=== PATIENT | female | born 1975 | race Hispanic/Latino ===

== ENCOUNTER 2022-03-02 08:02 | Outpatient (CLI) | payer OTHER | END 2022-03-02 08:03 | disposition home or self-care (01) | PROVIDERS: ATTEND Family Medicine | DX: G89.4 Chronic pain syndrome (principal); R29.898 Other symptoms and signs involving the musculoskeletal system; R29.6 Repeated falls; Z68.43 Body mass index [BMI] 50.0-59.9, adult ==

== ENCOUNTER 2022-03-15 09:29 | Outpatient (CLI) | payer OTHER | END 2022-03-15 09:30 | disposition home or self-care (01) | LOC: LABBT 09:29 | DX: Z01.818 Encounter for other preprocedural examination (principal); Z20.822 Contact with and (suspected) exposure to COVID-19; E66.01 Morbid (severe) obesity due to excess calories | CPT/HCPCS: 36415; 80053; 80061; 82306; 82607; 82728; 82746; 83036; 83540; 83970; 84425; 84443; 84480; 85025; 87811 ==

== ENCOUNTER 2022-03-17 18:25 | Observation (INO) | payer OTHER ==
[2022-03-17 19:53] LABS: #Eosinphils 0.3 thou/uL (0.0-0.7); #Monocytes 0.7 thou/uL (0.11-0.59); #Neutrophils 6.1 thou/uL (1.40-6.50); %Basophils 0.2 % (0.0-1.0); %Eosinophils 3.5 % (0.0-10.0); %Monocytes 7.2 % (0.0-10.0); %Neutrophils 67.1 % (42.0-75.0); Mean Corpuscular HGB CONC 31.9 g/dL (32.0-36.0); Mean Corpuscular Hemoglobin 27.6 pg (27.0-31.0); Mean Corpuscular Volume 86.6 fL (78.0-98.0); Platelet Count 169 thou/uL (130-400); RBC Distribution Width 13.9 % (11.5-14.5); Red Blood Cell (RBC) Count 4.35 mill/uL (4.20-5.40); White Blood Cell (WBC) Count 9.1 thou/uL (4.8-10.8)
[2022-03-17 20:15] LABS: ALT (SGPT) 27 U/L (8-55); AST (SGOT) 23 U/L (5-34); Albumin 3.5 g/dL (3.5-5.0); Alkaline Phosphatase 58 U/L (40-110); Anion Gap 12 mmol/L (10-20); BUN (Urea Nitrogen) 16 mg/dL (7.0-18.7); Bilirubin, Total 0.6 mg/dL (0.2-1.2); Calc. Creatinine Clearance 0 mL/min (70-130); Calcium 9.5 mg/dL (7.8-10.44); Carbon Dioxide 27 mmol/L (22-29); Chloride 100 mmol/L (98-107); Estimated GFR 87; Globulin 3.9 g/dL (2.4-3.5); Glucose 93 mg/dL (70-105); Potassium 3.8 mmol/L (3.5-5.1); Protein, Total 7.4 g/dL (6.0-8.3); Sodium 135 mmol/L (136-145)
[2022-03-17] MEDS ORDERED: Nitroglycerin 2% Ointment 1 INCH/1 GM Packet ONE (20:56)
[2022-03-17] MEDS ORDERED: Nitroglycerin 0.4 MG TAB (25 Tab Bottle) SL PRN (21:42)
[2022-03-17] MEDS ORDERED: Ondansetron ODT 4 MG TAB PO PRN (21:42)
[2022-03-17] MEDS ORDERED: Labetalol HCl 100 MG/20 ML VIAL SLOW IVP PRN (21:42)
[2022-03-17] MEDS ORDERED: Acetaminophen 325 MG TAB PO PRN (21:42)
[2022-03-17] MEDS ORDERED: hydrALAZINE 20 MG/ML VIAL SLOW IVP PRN (22:24)
[2022-03-17 22:36] VITALS: BMI 55.8
[2022-03-17] MEDS ORDERED: Dextrose 50% Abboject 50 ML SYRINGE SLOW IVP PRN (22:41)
[2022-03-17] MEDS ORDERED: Dextrose 5% in Water 1,000 ML IV PRN (22:41)
[2022-03-17] MEDS ORDERED: HumaLOG 300 UNITS/3 ML VIAL SC PRN ×2 (22:41)
[2022-03-17] MEDS ORDERED: Enoxaparin Sodium 40 MG/0.4 ML SYRINGE SC SCH (23:00)
[2022-03-17 23:31] LABS: Magnesium 1.9 mg/dL (1.6-2.6); Phosphorus 3.9 mg/dL (2.3-4.7)
[2022-03-17 23:35] LABS: Troponin I Less than 0.010 ng/mL (< 0.028)
[2022-03-18 02:35] LABS: Troponin I Less than 0.010 ng/mL (< 0.028)
[2022-03-18 03:13] LABS: ALT (SGPT) 26 U/L (8-55); AST (SGOT) 22 U/L (5-34); Albumin 3.4 g/dL (3.5-5.0); Alkaline Phosphatase 60 U/L (40-110); Anion Gap 17 mmol/L (10-20); BUN (Urea Nitrogen) 18 mg/dL (7.0-18.7); Calc. Creatinine Clearance 162 mL/min (70-130); Calcium 9.8 mg/dL (7.8-10.44); Chloride 100 mmol/L (98-107); Estimated GFR 78; Globulin 3.9 g/dL (2.4-3.5); Glucose 235 mg/dL (70-105); Potassium 3.7 mmol/L (3.5-5.1); Protein, Total 7.3 g/dL (6.0-8.3); Sodium 134 mmol/L (136-145)
[2022-03-18 03:29] LABS: Bilirubin, Total 0.6 mg/dL (0.2-1.2); Carbon Dioxide 21 mmol/L (22-29)
[2022-03-18] MEDS: Lisinopril 20 MG TAB PO SCH (09:00)
[2022-03-18] MEDS ORDERED: Non-Formulary Item 1 EACH (Cyclobenzaprine Hcl [Cyclobenzaprine Hcl] 5 MG Tablet) PO SCH (09:00)
[2022-03-18] MEDS: Atorvastatin Calcium 40 MG TAB PO SCH (09:00)
[2022-03-18] MEDS: Aspirin 81 mg Enteric Coated Tablet PO SCH (09:00)
[2022-03-18 12:13] LABS: #Eosinphils 0.4 thou/uL (0.0-0.7); #Lymphocytes 1.8 thou/uL (1.20-3.40); #Monocytes 0.4 thou/uL (0.11-0.59); #Neutrophils 5.8 thou/uL (1.40-6.50); %Eosinophils 4.4 % (0.0-10.0); %Lymphocytes 21.1 % (21.0-51.0); %Monocytes 5.2 % (0.0-10.0); %Neutrophils 69.3 % (42.0-75.0); Hemoglobin 12.3 g/dL (12.0-16.0); Mean Corpuscular Hemoglobin 26.8 pg (27.0-31.0); Mean Corpuscular Volume 86.4 fL (78.0-98.0); Mean Platelet Volume 8.3 fL (7.4-10.4); Platelet Count 181 thou/uL (130-400); RBC Distribution Width 13.9 % (11.5-14.5); Red Blood Cell (RBC) Count 4.61 mill/uL (4.20-5.40); White Blood Cell (WBC) Count 8.4 thou/uL (4.8-10.8)
[2022-03-18 18:12] LABS: Amphetamine Not Detected (NotDetected); Barbiturates Screen Not Detected (NotDetected); Benzodiazepine Screen Not Detected (NotDetected); Cocaine Metabolite Screen Not Detected (NotDetected); Methadone Not Detected (NotDetected); Methamphetamine Not Detected (NotDetected); Opiate Screen Detected (NotDetected); Oxycodone Screen Not Detected (NotDetected); Phencyclidine (PCP) Not Detected (NotDetected); THC/Cannabinoid Screen Not Detected (NotDetected); Tricyclic Screen Not Detected (NotDetected)
[2022-03-18] MEDS ORDERED: Hydrochlorothiazide 25 MG TAB PO SCH (21:00)
[2022-03-19] MEDS ORDERED: Lorazepam 1 MG TAB PO SCH (08:47)
[2022-03-19] MEDS ORDERED: Lorazepam 2 MG/ML VIAL SLOW IVP PRN ×2 (08:48→08:50)
[2022-03-19] MEDS ORDERED: Lorazepam 0.5 MG TAB PO SCH (09:00)
[2022-03-19] MEDS ORDERED: Midazolam HCl 2 mg/2 ml Vial SLOW IVP SCH ×2 (09:00)
[2022-03-19] MEDS: Aspirin 81 mg Enteric Coated Tablet PO SCH (09:25)
[2022-03-19] MEDS: Atorvastatin Calcium 40 MG TAB PO SCH (09:25)
[2022-03-19] MEDS ORDERED: Lorazepam (BATCHED) 2 MG/ML SYR SLOW IVP SCH (10:45)
[2022-03-19] MEDS: Lisinopril 20 MG TAB PO SCH (11:50)
[2022-03-19 12:20] VITALS: BP 135/94; TEMP 97.3
[2022-03-19] MEDS: LAMIVUDINE PO SCH (18:13)
[2022-03-19] MEDS: DOLUTEGRAVIR SODIUM PO SCH (18:13)
== END 2022-03-19 14:30 | disposition home or self-care (01) ==
LOC: ERS 18:25 → 2SW 21:08
PROVIDERS: ADMIT Student in an Organized Health Care Education/Training Program; ATTEND Student in an Organized Health Care Education/Training Program
DX: R07.89 Other chest pain (principal); I11.9 Hypertensive heart disease without heart failure; E11.43 Type 2 diabetes mellitus with diabetic autonomic (poly)neuropathy; K31.84 Gastroparesis; E78.5 Hyperlipidemia, unspecified; G47.33 Obstructive sleep apnea (adult) (pediatric); M19.90 Unspecified osteoarthritis, unspecified site; I34.0 Nonrheumatic mitral (valve) insufficiency; E66.9 Obesity, unspecified; Z68.43 Body mass index [BMI] 50.0-59.9, adult; Z21 Asymptomatic human immunodeficiency virus [HIV] infection status; Z87.891 Personal history of nicotine dependence; Z79.82 Long term (current) use of aspirin; Z79.84 Long term (current) use of oral hypoglycemic drugs; Z79.899 Other long term (current) drug therapy
CPT/HCPCS: 36415; 36416; 71045; 78452; 80053; 80306; 83735; 84100; 84484; 85025; 93005; 93017; 93306; 94760; 96372; 96374; A9500; G0378; J0153; J1650; J2250

== ENCOUNTER 2022-10-29 16:15 | Emergency (ER) | payer OTHER | END 2022-10-29 18:02 | disposition home or self-care (01) | LOC: ERS 16:15 | DX: S06.0XAA Concussion with loss of consciousness status unknown, initial encounter (principal); S01.511A Laceration without foreign body of lip, initial encounter; M96.830 Postprocedural hemorrhage of a musculoskeletal structure following a musculoskeletal system procedure; I10 Essential (primary) hypertension; Z79.899 Other long term (current) drug therapy; E11.40 Type 2 diabetes mellitus with diabetic neuropathy, unspecified; Z87.891 Personal history of nicotine dependence; W01.0XXA Fall on same level from slipping, tripping and stumbling without subsequent striking against object, initial encounter | CPT/HCPCS: 99283 ==

== ENCOUNTER 2022-11-28 15:46 | Emergency (ER) | payer OTHER ==
[2022-11-28 16:32] LABS: #Eosinphils 0.3 thou/uL (0.0-0.7); #Lymphocytes 2.3 thou/uL (1.20-3.40); #Monocytes 0.5 thou/uL (0.11-0.59); #Neutrophils 6.8 thou/uL (1.40-6.50); %Basophils 0.1 % (0.0-1.0); %Eosinophils 3.2 % (0.0-10.0); %Lymphocytes 23.3 % (21.0-51.0); %Monocytes 4.9 % (0.0-10.0); %Neutrophils 68.5 % (42.0-75.0); Hemoglobin 12.7 g/dL (12.0-16.0); Mean Corpuscular HGB CONC 33.1 g/dL (32.0-36.0); Mean Corpuscular Hemoglobin 29.3 pg (27.0-31.0); Mean Corpuscular Volume 88.4 fl (78.0-98.0); Mean Platelet Volume 8.6 fL (7.4-10.4); Platelet Count 180 10x3/uL (130-400); RBC Distribution Width 14.4 % (11.5-14.5); Red Blood Cell (RBC) Count 4.33 mill/uL (4.20-5.40); White Blood Cell (WBC) Count 9.9 10x3/uL (4.8-10.8)
[2022-11-28 16:52] LABS: ALT (SGPT) 23 U/L (8-55); AST (SGOT) 16 U/L (5-34); Albumin 3.7 g/dL (3.5-5.0); Alkaline Phosphatase 77 U/L (40-110); Anion Gap 13 mmol/L (10-20); BUN (Urea Nitrogen) 21 mg/dL (7.0-18.7); Bilirubin, Total 0.6 mg/dL (0.2-1.2); Calc. Creatinine Clearance 0 mL/min (70-130); Carbon Dioxide 27 mmol/L (22-29); Chloride 100 mmol/L (98-107); Estimated GFR 56; Globulin 4.1 g/dL (2.4-3.5); Glucose 188 mg/dL (70-105); Lipase 55 U/L (8-78); Potassium 3.8 mmol/L (3.5-5.1); Protein, Total 7.8 g/dL (6.0-8.3); Sodium 136 mmol/L (136-145)
[2022-11-28] MEDS ORDERED: Aspirin Chewable 81 MG TAB ONE ×2 (18:02)
[2022-11-28] MEDS ORDERED: Nitroglycerin 0.4 MG TAB 1 EACH ONE (18:02)
== END 2022-11-28 19:34 | disposition home or self-care (01) ==
LOC: ERS 15:46
DX: R07.9 Chest pain, unspecified (principal); B20 Human immunodeficiency virus [HIV] disease; I10 Essential (primary) hypertension; E11.9 Type 2 diabetes mellitus without complications; Z87.891 Personal history of nicotine dependence; Z79.899 Other long term (current) drug therapy
CPT/HCPCS: 36415; 71045; 80053; 83690; 84484; 85025; 85379; 93005

== ENCOUNTER 2022-12-18 19:52 | Emergency (ER) | payer OTHER ==
[2022-12-18] MEDS ORDERED: Acetaminophen 500 MG TAB ONE ×2 (20:50→20:52)
== END 2022-12-18 20:45 | disposition home or self-care (01) ==
LOC: ERS 19:52
DX: M76.62 Achilles tendinitis, left leg (principal); B20 Human immunodeficiency virus [HIV] disease; E11.40 Type 2 diabetes mellitus with diabetic neuropathy, unspecified; I10 Essential (primary) hypertension; Z79.899 Other long term (current) drug therapy; Z87.891 Personal history of nicotine dependence

== ENCOUNTER 2023-01-05 15:20 | Emergency (ER) | payer OTHER ==
[2023-01-05 16:51] LABS: #Eosinphils 0.3 thou/uL (0.0-0.7); #Lymphocytes 1.9 thou/uL (1.20-3.40); #Monocytes 0.5 thou/uL (0.11-0.59); #Neutrophils 6.1 thou/uL (1.40-6.50); %Basophils 0.1 % (0.0-1.0); %Eosinophils 3.3 % (0.0-10.0); %Lymphocytes 21.8 % (21.0-51.0); %Monocytes 5.1 % (0.0-10.0); %Neutrophils 69.7 % (42.0-75.0); Hemoglobin 11.8 g/dL (12.0-16.0); Mean Corpuscular Hemoglobin 28.7 pg (27.0-31.0); Mean Corpuscular Volume 87.1 fl (78.0-98.0); Mean Platelet Volume 8.3 fL (7.4-10.4); Platelet Count 169 10x3/uL (130-400); RBC Distribution Width 14.9 % (11.5-14.5); White Blood Cell (WBC) Count 8.7 10x3/uL (4.8-10.8)
[2023-01-05 17:08] LABS: ALT (SGPT) 25 U/L (8-55); AST (SGOT) 22 U/L (5-34); Albumin 3.7 g/dL (3.5-5.0); Alkaline Phosphatase 77 U/L (40-110); Anion Gap 10 mmol/L (10-20); BUN (Urea Nitrogen) 11 mg/dL (7.0-18.7); Bilirubin, Total 0.4 mg/dL (0.2-1.2); Calc. Creatinine Clearance 0 mL/min (70-130); Calcium 9.6 mg/dL (7.8-10.44); Carbon Dioxide 27 mmol/L (22-29); Chloride 105 mmol/L (98-107); Estimated GFR 82; Globulin 3.5 g/dL (2.4-3.5); Glucose 142 mg/dL (70-105); Potassium 4.3 mmol/L (3.5-5.1); Protein, Total 7.2 g/dL (6.0-8.3); Sodium 138 mmol/L (136-145)
[2023-01-05 18:03] LABS: Prothrombin Time 13.3 sec (12.0-14.7)
[2023-01-05] MEDS ORDERED: Apixaban 5 MG TAB PO SCH (18:15)
== END 2023-01-05 18:25 | disposition home or self-care (01) ==
LOC: ERS 15:20
DX: I82.462 Acute embolism and thrombosis of left calf muscular vein (principal); B20 Human immunodeficiency virus [HIV] disease; I10 Essential (primary) hypertension; E11.40 Type 2 diabetes mellitus with diabetic neuropathy, unspecified; Z79.899 Other long term (current) drug therapy; Z87.891 Personal history of nicotine dependence
CPT/HCPCS: 36415; 71045; 84484; 85610; 85730; 93005; 93306; 93970

== ENCOUNTER 2023-01-13 11:37 | Outpatient (CLI) | payer OTHER | END 2023-01-13 11:38 | disposition home or self-care (01) | LOC: ULT 11:37 | PROVIDERS: ATTEND Podiatrist Foot & Ankle Surgery | DX: S86.012A Strain of left Achilles tendon, initial encounter (principal) | CPT/HCPCS: 76881 ==

== ENCOUNTER 2023-08-03 15:18 | Observation (INO) | payer OTHER ==
[2023-08-03 16:45] LABS: #Eosinphils 0.3 thou/uL (0.0-0.7); #Monocytes 0.6 thou/uL (0.11-0.59); #Neutrophils 4.8 thou/uL (1.40-6.50); %Basophils 0.3 % (0.0-1.0); %Eosinophils 3.7 % (0.0-10.0); %Lymphocytes 27.5 % (21.0-51.0); %Monocytes 7.4 % (0.0-10.0); %Neutrophils 60.7 % (42.0-75.0); Hematocrit 40.8 % (36.0-47.0); Hemoglobin 12.9 g/dL (12.0-16.0); Mean Corpuscular HGB CONC 31.6 g/dL (32.0-36.0); Mean Corpuscular Hemoglobin 26.9 pg (27.0-31.0); Mean Corpuscular Volume 85.2 fl (78.0-98.0); Mean Platelet Volume 10.6 fL (7.4-10.4); Platelet Count 186 10x3/uL (130-400); Red Blood Cell (RBC) Count 4.79 mill/uL (4.20-5.40); White Blood Cell (WBC) Count 7.9 10x3/uL (4.8-10.8)
[2023-08-03 16:50] LABS: BHCG - Serum Negative (NEGATIVE); Pregs Control Background? CLEAR/WHITE (CLR/WHITE); Pregs Control Bar Appear? YES (CONTROL BAR)
[2023-08-03 17:10] LABS: ALT (SGPT) 26 U/L (8-55); AST (SGOT) 28 U/L (5-34); Albumin 3.5 g/dL (3.5-5.0); Alkaline Phosphatase 61 U/L (40-110); Anion Gap 12 mmol/L (10-20); BUN (Urea Nitrogen) 16 mg/dL (7.0-18.7); Bilirubin, Total 0.6 mg/dL (0.2-1.2); Calc. Creatinine Clearance 0 mL/min (70-130); Calcium 9.6 mg/dL (7.8-10.44); Carbon Dioxide 25 mmol/L (22-29); Chloride 102 mmol/L (98-107); Estimated GFR 86; Glucose 90 mg/dL (70-105); Lipase 58 U/L (8-78); Potassium 3.6 mmol/L (3.5-5.1); Protein, Total 8.5 g/dL (6.0-8.3); Sodium 135 mmol/L (136-145)
[2023-08-03 17:14] LABS: Troponin I Less than 0.010 ng/mL (< 0.028)
[2023-08-03] MEDS ORDERED: Morphine 4 MG/ML VIAL ONE (17:59)
[2023-08-03] MEDS ORDERED: Ondansetron PF 4 MG/2 ML Vial ONE (17:59)
[2023-08-03] MEDS ORDERED: Ondansetron PF 4 MG/2 ML Vial IVP PRN (21:53)
[2023-08-03] MEDS ORDERED: Ondansetron ODT 4 MG TAB PO PRN (21:53)
[2023-08-03] MEDS ORDERED: Nitroglycerin 0.4 MG TAB (25 Tab Bottle) SL PRN (22:11)
[2023-08-03 22:56] LABS: Hemoglobin A1c 6.1 % (4.0-6.0)
[2023-08-03 23:09] LABS: Cardiac Risk 5.8 (Less than 4.5)
[2023-08-03 23:15] LABS: Troponin I Less than 0.010 ng/mL (< 0.028)
[2023-08-03] MEDS ORDERED: Nitroglycerin 2% Ointment 1 INCH/1 GM Packet TOP PRN (23:16)
[2023-08-03 23:34] VITALS: BMI 53.1
[2023-08-04] MEDS ORDERED: Dextrose 5% in Water 1,000 ML IV PRN (00:14)
[2023-08-04] MEDS ORDERED: HumaLOG 300 UNITS/3 ML VIAL SC PRN (00:14)
[2023-08-04] MEDS ORDERED: Dextrose 50% Abboject 50 ML SYRINGE SLOW IVP PRN (00:14)
[2023-08-04] MEDS ORDERED: Glucagon 1 MG/ML KIT IM PRN (00:14)
[2023-08-04 04:54] LABS: #Eosinphils 0.3 thou/uL (0.0-0.7); #Monocytes 0.6 thou/uL (0.11-0.59); #Neutrophils 5.5 thou/uL (1.40-6.50); %Basophils 0.1 % (0.0-1.0); %Eosinophils 3.6 % (0.0-10.0); %Monocytes 7.5 % (0.0-10.0); %Neutrophils 65.3 % (42.0-75.0); Hematocrit 37.5 % (36.0-47.0); Hemoglobin 11.6 g/dL (12.0-16.0); Mean Corpuscular HGB CONC 30.9 g/dL (32.0-36.0); Mean Corpuscular Hemoglobin 26.9 pg (27.0-31.0); Mean Platelet Volume 10.2 fL (7.4-10.4); Platelet Count 162 10x3/uL (130-400); RBC Distribution Width 14.2 % (11.5-14.5); Red Blood Cell (RBC) Count 4.31 mill/uL (4.20-5.40); White Blood Cell (WBC) Count 8.4 10x3/uL (4.8-10.8)
[2023-08-04 05:22] LABS: Anion Gap 12 mmol/L (10-20); BUN (Urea Nitrogen) 16 mg/dL (7.0-18.7); Calc. Creatinine Clearance 173 mL/min (70-130); Calcium 9.4 mg/dL (7.8-10.44); Carbon Dioxide 25 mmol/L (22-29); Chloride 100 mmol/L (98-107); Estimated GFR 91; Glucose 110 mg/dL (70-105); Potassium 3.6 mmol/L (3.5-5.1); Sodium 133 mmol/L (136-145)
[2023-08-04] MEDS: Aspirin 81 mg Enteric Coated Tablet PO SCH (08:58)
[2023-08-04] MEDS: Famotidine 20 MG TAB PO SCH ×3 (08:58→20:26)
[2023-08-04] MEDS ORDERED: Lisinopril 10 MG TAB PO SCH (09:00)
[2023-08-04] MEDS ORDERED: Spironolactone 25 MG TAB PO SCH (11:45)
[2023-08-04] MEDS ORDERED: Empagliflozin 25 MG TAB PO SCH (11:45)
[2023-08-04] MEDS ORDERED: Hydrochlorothiazide 25 MG TAB PO SCH (11:45)
[2023-08-04 16:22] LABS: Syphilis Antibody Nonreactive (Nonreactive); Syphilis Antibody Index 0.09 S/CO (<1.00 Non-Reactive)
[2023-08-04] MEDS: Spironolactone 25 MG TAB PO SCH (16:34)
[2023-08-04] MEDS ORDERED: Carvedilol 6.25 MG TAB PO SCH (17:00)
[2023-08-04] MEDS ORDERED: Communication Order-Pharmacy FS SCH (20:00)
[2023-08-04] MEDS: Hydrochlorothiazide 25 MG TAB PO SCH (20:26)
[2023-08-04] MEDS ORDERED: Atorvastatin Calcium 40 MG TAB PO SCH (21:00)
[2023-08-05] MEDS: Hydrochlorothiazide 25 MG TAB PO SCH (05:46)
[2023-08-05] MEDS: Famotidine 20 MG TAB PO SCH (05:46)
[2023-08-05] MEDS: Spironolactone 25 MG TAB PO SCH (05:46)
[2023-08-05] MEDS: Aspirin 81 mg Enteric Coated Tablet PO SCH (06:05)
[2023-08-05] MEDS ORDERED: Lidocaine 1% (PF) 30 ML VIAL ONE (06:07)
[2023-08-05] MEDS ORDERED: fentaNYL 50 mcg/mL 1 mL Vial ONE (06:07)
[2023-08-05] MEDS ORDERED: Nitroglycerin 50 MG/250 ML BOT 0 ML ONE (06:07)
[2023-08-05] MEDS ORDERED: Heparin 10,000 UNITS/ 10 ML VIAL ONE (06:07)
[2023-08-05] MEDS ORDERED: Midazolam HCl 2 mg/2 ml Vial ONE (06:07)
[2023-08-05] MEDS ORDERED: Verapamil 5 MG/2 ML VIAL ONE (06:13)
[2023-08-05] MEDS ORDERED: Nitroglycerin 50 MG/250 ML BOT 250 ML ONE (07:10)
[2023-08-05] MEDS ORDERED: Empagliflozin 25 MG TAB PO SCH (09:00)
[2023-08-05 12:12] VITALS: BP 115/79; TEMP 97.3
[2023-08-05 23:12] LABS: LOG10 HIV-1 RNA 4.919 (.)
[2023-08-07] MEDS ORDERED: FLU VACC QS2023-24(6MOS UP)/PF 60 MCG/0.5 ML SYRINGE IM ONE (00:30)
== END 2023-08-05 14:55 | disposition home or self-care (01) ==
LOC: ERS 15:18 → 2SW 18:59
PROVIDERS: ADMIT Family Medicine; ATTEND Family Medicine
PROC: 4A023N7 Measurement of Cardiac Sampling and Pressure, Left Heart, Percutaneous Approach (ICD-10-PCS; principal; 2023-08-03)
PROC: B205YZZ Plain Radiography of Left Heart using Other Contrast (ICD-10-PCS; 2023-08-03)
DX: R07.89 Other chest pain (principal); R00.0 Tachycardia, unspecified; I20.0 Unstable angina; I11.0 Hypertensive heart disease with heart failure; I50.30 Unspecified diastolic (congestive) heart failure; E78.5 Hyperlipidemia, unspecified; E11.43 Type 2 diabetes mellitus with diabetic autonomic (poly)neuropathy; K31.84 Gastroparesis; F32.A Depression, unspecified; F41.9 Anxiety disorder, unspecified; B20 Human immunodeficiency virus [HIV] disease; E78.00 Pure hypercholesterolemia, unspecified; E66.01 Morbid (severe) obesity due to excess calories; E11.42 Type 2 diabetes mellitus with diabetic polyneuropathy; Z90.710 Acquired absence of both cervix and uterus; Z88.8 Allergy status to other drugs, medicaments and biological substances; Z91.013 Allergy to seafood; Z79.82 Long term (current) use of aspirin; Z79.899 Other long term (current) drug therapy
CPT/HCPCS: 36415; 36416; 71045; 80048; 80053; 80061; 83036; 83690; 83880; 84443; 84484; 84703; 85025; 86780; 87536; 93005; 96372; 96374; 96375; G0378; J1644; J1650; J2001; J2250; J2270; J2405; J3010

== ENCOUNTER 2024-02-27 21:50 | Emergency (ER) | payer OTHER ==
[2024-02-27 23:25] LABS: #Basophils Less than 0.03 10x3/uL (0.0-0.2); %Basophils 0.2 % (0.0-1.0); %Eosinophils 2.4 % (0.0-10.0); %Lymphocytes 24.5 % (21.0-51.0); %Monocytes 5.8 % (0.0-10.0); %Neutrophils 66.8 % (42.0-75.0); Hematocrit 41.5 % (36.0-47.0); Hemoglobin 12.9 g/dL (12.0-16.0); Mean Corpuscular HGB CONC 31.1 g/dL (32.0-36.0); Mean Corpuscular Hemoglobin 27.3 pg (27.0-31.0); Mean Corpuscular Volume 87.9 fL (78.0-98.0); Mean Platelet Volume 10.6 fL (7.4-10.4); Platelet Count 204 10x3/uL (130-400); RBC Distribution Width 14.8 % (11.5-14.5); Red Blood Cell (RBC) Count 4.72 mill/uL (4.20-5.40)
[2024-02-27 23:47] LABS: ALT (SGPT) 31 U/L (8-55); AST (SGOT) 31 U/L (5-34); Albumin 3.1 g/dL (3.5-5.0); Alkaline Phosphatase 84 U/L (40-110); Anion Gap 13 mmol/L (10-20); BUN (Urea Nitrogen) 17 mg/dL (7.0-18.7); Bilirubin, Total 0.3 mg/dL (0.2-1.2); Calc. Creatinine Clearance 0 mL/min (70-130); Calcium 9.7 mg/dL (7.8-10.44); Carbon Dioxide 27 mmol/L (22-29); Chloride 101 mmol/L (98-107); Estimated GFR 76; Globulin 5.1 g/dL (2.4-3.5); Glucose 334 mg/dL (70-105); Potassium 4.7 mmol/L (3.5-5.1); Protein, Total 8.2 g/dL (6.0-8.3); Sodium 136 mmol/L (136-145)
[2024-02-27 23:51] LABS: Troponin I Less than 0.010 ng/mL (< 0.028)
[2024-02-28] MEDS ORDERED: Ondansetron ODT 4 MG TAB ONE (03:17)
[2024-02-28 03:42] LABS: Troponin I 0.015 ng/mL (< 0.028)
== END 2024-02-28 04:30 | disposition home or self-care (01) ==
LOC: ERS 21:50
DX: R07.9 Chest pain, unspecified (principal); I10 Essential (primary) hypertension; E11.9 Type 2 diabetes mellitus without complications; Z87.891 Personal history of nicotine dependence
CPT/HCPCS: 36415; 71045; 80053; 84484; 85025; 93005; Q0162

== ENCOUNTER 2024-03-13 16:56 | Emergency (ER) | payer OTHER ==
[2024-03-13 19:27] LABS: #Basophils 0.03 10x3/uL (0.0-0.2); %Basophils 0.3 % (0.0-1.0); %Lymphocytes 28.2 % (21.0-51.0); %Neutrophils 60.9 % (42.0-75.0); Hematocrit 44.8 % (36.0-47.0); Hemoglobin 13.8 g/dL (12.0-16.0); Mean Corpuscular HGB CONC 30.8 g/dL (32.0-36.0); Mean Corpuscular Hemoglobin 27.1 pg (27.0-31.0); Mean Corpuscular Volume 87.8 fL (78.0-98.0); Mean Platelet Volume 10.3 fL (7.4-10.4); Platelet Count 202 10x3/uL (130-400); RBC Distribution Width 15.2 % (11.5-14.5)
[2024-03-13 19:42] LABS: ALT (SGPT) 56 U/L (8-55); AST (SGOT) 66 U/L (5-34); Albumin 3.2 g/dL (3.5-5.0); Alkaline Phosphatase 78 U/L (40-110); Anion Gap 11 mmol/L (10-20); BUN (Urea Nitrogen) 16 mg/dL (7.0-18.7); Bilirubin, Total 0.7 mg/dL (0.2-1.2); Calc. Creatinine Clearance 0 mL/min (70-130); Calcium 9.8 mg/dL (7.8-10.44); Carbon Dioxide 30 mmol/L (22-29); Chloride 100 mmol/L (98-107); Estimated GFR 80; Globulin 5.2 g/dL (2.4-3.5); Glucose 120 mg/dL (70-105); Potassium 4.7 mmol/L (3.5-5.1); Protein, Total 8.4 g/dL (6.0-8.3); Sodium 136 mmol/L (136-145)
[2024-03-13 19:47] LABS: Troponin I Less than 0.010 ng/mL (< 0.028)
[2024-03-13] MEDS ORDERED: Promethazine HCl 25 MG/ML VIAL IM SCH (21:15)
== END 2024-03-13 21:23 | disposition home or self-care (01) ==
LOC: ERS 16:56
DX: R42 Dizziness and giddiness (principal); R11.0 Nausea; I10 Essential (primary) hypertension; E11.40 Type 2 diabetes mellitus with diabetic neuropathy, unspecified; Z87.891 Personal history of nicotine dependence; Z79.899 Other long term (current) drug therapy
CPT/HCPCS: 36415; 71045; 80053; 83880; 84484; 85025; 93005; 96372; J2550

== ENCOUNTER 2024-04-20 06:09 | Emergency (ER) | payer OTHER ==
[2024-04-20] MEDS ORDERED: Ibuprofen 800 MG TAB ONE (07:20)
[2024-04-20] MEDS ORDERED: Acetaminophen 500 MG TAB ONE (07:20)
[2024-04-20] MEDS ORDERED: Oxymetazoline HCl 0.05% (30 ML BOT) ONE (07:25)
[2024-04-20] MEDS ORDERED: Albuterol 200 PUFF (6.7GM INHALER) ONE (07:25)
[2024-04-20 07:33] LABS: Influenza A by NAA Not Detected (NotDetected); Influenza B by NAA Not Detected (NotDetected); SARS-CoV-2 NAA Rapid Test DETECTED (NotDetected)
== END 2024-04-20 08:26 | disposition home or self-care (01) ==
LOC: ERS 06:09
DX: U07.1 COVID-19 (principal); I10 Essential (primary) hypertension; E11.40 Type 2 diabetes mellitus with diabetic neuropathy, unspecified; Z87.891 Personal history of nicotine dependence
CPT/HCPCS: 99284

== ENCOUNTER 2025-07-02 17:46 | Inpatient (IN) | payer MEDICAID ==
[2025-07-02 18:48] LABS: #Basophils Less than 0.03 10x3/uL (0.0-0.2); #Eosinophils 0.23 10x3/uL (0.0-0.7); #Monocytes 0.40 10x3/uL (0.11-0.59); #Neutrophils 4.83 10x3/uL (1.40-6.50); %Basophils 0.3 % (0.0-1.0); %Eosinophils 3.1 % (0.0-10.0); %Lymphocytes 25.7 % (21.0-51.0); %Monocytes 5.4 % (0.0-10.0); %Neutrophils 65.2 % (42.0-75.0); Hematocrit 43.7 % (36.0-47.0); Hemoglobin 12.9 g/dL (12.0-16.0); Mean Corpuscular Hemoglobin 27.7 pg (27.0-31.0); Mean Corpuscular Volume 93.8 fL (78.0-98.0); Platelet Count 177 10x3/uL (130-400); Red Blood Cell (RBC) Count 4.66 mill/uL (4.20-5.40); White Blood Cell (WBC) Count 7.40 10x3/uL (4.8-10.8)
[2025-07-02 19:12] LABS: Bacteria/HPF None Seen HPF (None Seen); CAUTI Indications for Culture Pelvic or flank pain; Glucose, Urine (Dipstick) Greater than 1000 mg/dL (Negative); Leukocyte Negative Leu/uL (Negative); Protein, Urine (Dipstick) Negative (Neg-Trace); RBC/HPF None Seen HPF (0-3); Specific Gravity, Urine 1.028 (1.002-1.036); WBC/HPF None Seen HPF (0-3)
[2025-07-02 19:17] LABS: ALT (SGPT) 42 U/L (Less than 34); AST (SGOT) 46 U/L (11-34); Albumin 3.1 g/dL (3.1-4.5); Alkaline Phosphatase 80 U/L (40-110); Anion Gap 10 mmol/L (10-20); BUN (Urea Nitrogen) 15 mg/dL (7.0-18.7); Bilirubin, Total 0.6 mg/dL (0.3-1.2); Calc. Creatinine Clearance 0 mL/min (70-130); Calcium 9.6 mg/dL (7.8-10.44); Carbon Dioxide 31 mmol/L (22-29); Chloride 93 mmol/L (98-107); Globulin 5.2 g/dL (2.4-3.5); Glucose 579 mg/dL (70-105); Potassium 4.7 mmol/L (3.5-5.1); Sodium 129 mmol/L (136-145)
[2025-07-02 19:18] LABS: Urine Culture Reflex No No
[2025-07-02 19:44] LABS: Actual Bicarbonate (HCO3v) 28.3 mEq/L (22-28); Analyzer IN Cardio ER; Base Excess 2.5 mEq/L (-2.0 to +3.0); Calcium, Ionized (venous) 1.18 mmol/L (1.16-1.32); Chloride (VBG) 94 mmol/L (98-106); Hematocrit-VBG 43 % (36.0-47.0); Hemoglobin (Hb) 14.5 g/dL (11.7-16.0); Potassium (VBG) 4.92 mmol/L (3.70-5.30); Sodium 131 mmol/L (133-146)
[2025-07-02 19:48] LABS: Osmolality, Serum 303 mOsm/kg (275-295)
[2025-07-02 21:59] VITALS: BMI 61.9
[2025-07-03] MEDS ORDERED: Glucagon 1 MG/ML KIT IM PRN (00:28)
[2025-07-03] MEDS ORDERED: Dextrose 50% Abboject 50 ML SYRINGE SLOW IVP PRN (00:28)
[2025-07-03] MEDS ORDERED: Acetaminophen 325 MG TAB PO PRN (00:28)
[2025-07-03] MEDS: Calcium Carbonate 500 MG ChewTAB PO PRN (00:50)
[2025-07-03] MEDS ORDERED: Nitroglycerin 0.4 MG TAB (25 Tab Bottle) SL PRN (00:57)
[2025-07-03 04:31] LABS: #Basophils 0.04 10x3/uL (0.0-0.2); #Eosinophils 0.33 10x3/uL (0.0-0.7); #Monocytes 0.74 10x3/uL (0.11-0.59); #Neutrophils 6.62 10x3/uL (1.40-6.50); %Basophils 0.4 % (0.0-1.0); %Eosinophils 3.1 % (0.0-10.0); %Lymphocytes 27.6 % (21.0-51.0); %Monocytes 6.9 % (0.0-10.0); %Neutrophils 61.4 % (42.0-75.0); Hematocrit 41.4 % (36.0-47.0); Hemoglobin 13.0 g/dL (12.0-16.0); Mean Corpuscular Hemoglobin 28.8 pg (27.0-31.0); Mean Corpuscular Volume 91.8 fL (78.0-98.0); Platelet Count 183 10x3/uL (130-400); Red Blood Cell (RBC) Count 4.51 mill/uL (4.20-5.40); White Blood Cell (WBC) Count 10.76 10x3/uL (4.8-10.8)
[2025-07-03 04:44] LABS: ALT (SGPT) 39 U/L (Less than 34); AST (SGOT) 47 U/L (11-34); Albumin 3.0 g/dL (3.1-4.5); Alkaline Phosphatase 78 U/L (40-110); Anion Gap 13 mmol/L (10-20); BUN (Urea Nitrogen) 16 mg/dL (7.0-18.7); Bilirubin, Total 0.5 mg/dL (0.3-1.2); Calc. Creatinine Clearance 177 mL/min (70-130); Calcium 10.1 mg/dL (7.8-10.44); Carbon Dioxide 29 mmol/L (22-29); Chloride 97 mmol/L (98-107); Globulin 5.5 g/dL (2.4-3.5); Glucose 205 mg/dL (70-105); Magnesium 1.6 mg/dL (1.6-2.6); Potassium 4.2 mmol/L (3.5-5.1); Sodium 135 mmol/L (136-145)
[2025-07-03] MEDS: Enoxaparin 40 MG (0.4 mL) SYRINGE SC SCH (09:13)
[2025-07-03] MEDS: Insulin Glargine 30 UNITS/0.3 ML VIAL SC SCH ×2 (09:13→21:05)
[2025-07-03] MEDS: Torsemide 20 MG TAB PO SCH (09:13)
[2025-07-03] MEDS ORDERED: [UNRECOGNIZED DRUG - OTHER] SC SCH (13:34)
[2025-07-03] MEDS: [UNRECOGNIZED DRUG - OTHER] SC SCH (14:18)
[2025-07-03] MEDS ORDERED: Dolutegravir Sodium/Lamivudine [Dovato 50-300 Mg Tablet] PO SCH (21:00)
[2025-07-03] MEDS: Spironolactone 25 MG TAB PO SCH (21:05)
[2025-07-03] MEDS: Metoprolol Succinate XL 25 MG ER.TAB PO SCH (21:05)
[2025-07-04 05:37] VITALS: TEMP 97.8
[2025-07-04 08:13] LABS: #Basophils 0.04 10x3/uL (0.0-0.2); #Eosinophils 0.32 10x3/uL (0.0-0.7); #Monocytes 0.50 10x3/uL (0.11-0.59); #Neutrophils 5.41 10x3/uL (1.40-6.50); %Basophils 0.5 % (0.0-1.0); %Eosinophils 3.6 % (0.0-10.0); %Lymphocytes 28.3 % (21.0-51.0); %Monocytes 5.7 % (0.0-10.0); %Neutrophils 61.4 % (42.0-75.0); Hematocrit 40.9 % (36.0-47.0); Hemoglobin 12.2 g/dL (12.0-16.0); Mean Corpuscular Hemoglobin 28.2 pg (27.0-31.0); Mean Corpuscular Volume 94.7 fL (78.0-98.0); Platelet Count 167 10x3/uL (130-400); Red Blood Cell (RBC) Count 4.32 mill/uL (4.20-5.40); White Blood Cell (WBC) Count 8.80 10x3/uL (4.8-10.8)
[2025-07-04 08:32] LABS: ALT (SGPT) 38 U/L (Less than 34); AST (SGOT) 53 U/L (11-34); Albumin 2.9 g/dL (3.1-4.5); Alkaline Phosphatase 73 U/L (40-110); Anion Gap 11 mmol/L (10-20); BUN (Urea Nitrogen) 16 mg/dL (7.0-18.7); Bilirubin, Total 0.9 mg/dL (0.3-1.2); Calc. Creatinine Clearance 197 mL/min (70-130); Calcium 9.9 mg/dL (7.8-10.44); Carbon Dioxide 33 mmol/L (22-29); Chloride 95 mmol/L (98-107); Globulin 5.1 g/dL (2.4-3.5); Glucose 206 mg/dL (70-105); Potassium 4.1 mmol/L (3.5-5.1); Sodium 135 mmol/L (136-145)
[2025-07-04 16:49] VITALS: BP 114/79
[2025-07-05] MEDS ORDERED: FLU (Fluarix Triv) 25-26 (6MOS UP)/PF 45 MCG/0.5 ML Syringe IM ONE (09:00)
== END 2025-07-04 18:18 | disposition home or self-care (01) | DRG 638 ==
LOC: ERS 17:46 → T4-A 20:49 → OBSVTOIN 07-04 13:16
PROVIDERS: ADMIT Family Medicine; ATTEND Family Medicine
DX: E11.65 Type 2 diabetes mellitus with hyperglycemia (principal); I50.32 Chronic diastolic (congestive) heart failure; Z79.899 Other long term (current) drug therapy; Z66 Do not resuscitate; Z88.8 Allergy status to other drugs, medicaments and biological substances; Z91.013 Allergy to seafood; E78.5 Hyperlipidemia, unspecified; M19.90 Unspecified osteoarthritis, unspecified site; Z98.890 Other specified postprocedural states; Z87.891 Personal history of nicotine dependence; R74.01 Elevation of levels of liver transaminase levels; R06.00 Dyspnea, unspecified; J44.9 Chronic obstructive pulmonary disease, unspecified; G47.33 Obstructive sleep apnea (adult) (pediatric); Z21 Asymptomatic human immunodeficiency virus [HIV] infection status; I11.0 Hypertensive heart disease with heart failure; F41.9 Anxiety disorder, unspecified; Z79.4 Long term (current) use of insulin
CPT/HCPCS: 36415; 36416; 71045; 80053; 81001; 82010; 82805; 83735; 83880; 83930; 84100; 85025; 93005; 96360; 96361; J1650; J1815; Q0162

== ENCOUNTER 2025-08-21 09:50 | Outpatient (CLI) | payer MEDICAID | END 2025-08-21 09:51 | disposition home or self-care (01) | LOC: BICMAMMO 09:50 | PROVIDERS: ATTEND Nurse Practitioner Family | DX: Z12.31 Encounter for screening mammogram for malignant neoplasm of breast (principal) | CPT/HCPCS: 77063; 77067 ==